=== PATIENT | female | born 1970 | race American Indian/Alaskan Native ===

== ENCOUNTER 2017-04-15 16:23 | Emergency (ER) | payer MEDICAID ==
[~2017-04-15] VITALS: Ht 154.9 cm; Wt 84.3 kg
[2017-04-15] MEDS ORDERED: SODIUM CHLORIDE 0.9% 1,000 ML IV ONE (17:09)
[2017-04-15 17:24] LABS: HEMATOCRIT 48.6 % (34.6-47.8); HEMOGLOBIN 16.6 g/dL (11.7-16.4); WHITE BLOOD COUNT 9.3 x10^3/uL (3.4-10)
[2017-04-15] MEDS ORDERED: ONDANSETRON 2MG/ML, 2ML ONE (17:25)
[2017-04-15] MEDS ORDERED: HYDROmorphone 1 MG/ML, 1ML ONE ×2 (17:25→19:15)
[2017-04-15] MEDS ORDERED: FAMOTIDINE 20 MG/2 ML ONE (17:26)
[2017-04-15] MEDS ORDERED: SODIUM CHLORIDE 0.9% 1,000ML IVBOLUS ONE (17:30)
[2017-04-15] MEDS ORDERED: FAMOTIDINE 20 MG/2 ML IVP ONE (17:30)
[2017-04-15] MEDS ORDERED: ONDANSETRON 2MG/ML, 2ML IVPush ONE (17:30)
[2017-04-15] MEDS ORDERED: SODIUM CHLORIDE FLUSH 10ML SYR IVF ONE (17:30)
[2017-04-15 17:33] LABS: ASPARTATE AMINO TRANSFERASE 29 U/L (15-37); BLOOD UREA NITROGEN 9 mg/dL (7-18)
[2017-04-15] MEDS: HYDROmorphone 1 MG/ML, 1ML IVPush PRN ×2 (17:39→19:10)
[2017-04-15 19:10] VITALS: BP 123/66
== END 2017-04-15 19:13 | disposition home or self-care (01) ==
LOC: ED 18:52
DX: K80.70 Calculus of gallbladder and bile duct without cholecystitis without obstruction (principal); Z90.710 Acquired absence of both cervix and uterus
CPT/HCPCS: 36415; 76700; 80053; 83690; 85025; 96361; 96374; 96375; 96376; 99285; J1170; J2405; J7030; S0028

== ENCOUNTER 2017-04-16 22:05 | Emergency (ER) | payer MEDICAID ==
[~2017-04-16] VITALS: Ht 154.9 cm; Wt 86.9 kg
[2017-04-16 23:00] LABS: HEMATOCRIT 44.5 % (34.6-47.8); HEMOGLOBIN 15.4 g/dL (11.7-16.4); WHITE BLOOD COUNT 8.4 x10^3/uL (3.4-10)
[2017-04-16] MEDS ORDERED: SODIUM CHLORIDE 0.9% 1,000ML IVBOLUS ONE (23:00)
[2017-04-16] MEDS ORDERED: ONDANSETRON 2MG/ML, 2ML IVPush ONE (23:00)
[2017-04-16] MEDS ORDERED: SODIUM CHLORIDE FLUSH 10ML SYR IVF ONE (23:00)
[2017-04-16] MEDS ORDERED: FAMOTIDINE 20 MG/2 ML IVP ONE (23:00)
[2017-04-16] MEDS ORDERED: MORPHINE SULFATE 4 MG/ML, 1ML IVPush PRN (23:00)
[2017-04-16] MEDS ORDERED: MAALOX/HYOSCYAMINE/LIDOCAINE 45 ML BTL PO ONE (23:00)
[2017-04-16] MEDS ORDERED: ONDANSETRON 2MG/ML, 2ML ONE (23:03)
[2017-04-16] MEDS ORDERED: morphine SULFATE 10 MG/ML, 1ML ONE (23:03)
[2017-04-16] MEDS ORDERED: FAMOTIDINE 20 MG/2 ML ONE (23:04)
[2017-04-16] MEDS ORDERED: MAALOX/HYOSCYAMINE/LIDOCAINE 45 ML BTL ONE (23:04)
[2017-04-16 23:10] LABS: BLOOD UREA NITROGEN 16 mg/dL (7-18)
[2017-04-16 23:17] LABS: ASPARTATE AMINO TRANSFERASE 21 U/L (15-37)
[2017-04-16] MEDS ORDERED: HYDROmorphone 1 MG/ML, 1ML IV ONE (23:30)
[2017-04-16] MEDS ORDERED: HYDROmorphone 1 MG/ML, 1ML ONE (23:47)
[2017-04-17 03:59] VITALS: BP 118/77
== END 2017-04-17 04:01 | disposition home or self-care (01) ==
LOC: ED 23:39
DX: K80.20 Calculus of gallbladder without cholecystitis without obstruction (principal); E66.9 Obesity, unspecified
CPT/HCPCS: 36415; 74020; 80053; 81003; 83690; 84703; 85025; 93005; 96361; 96374; 96375; 99285; J1170; J2405; J7030; S0028

== ENCOUNTER 2017-09-19 14:19 | Emergency (ER) | payer MEDICAID ==
[~2017-09-19] VITALS: Ht 154.9 cm; Wt 88.7 kg
[2017-09-19 14:21] VITALS: BP 145/89
[2017-09-19 15:19] LABS: MICROSCOPIC AUTO
[2017-09-19 15:23] LABS: CULTURE INDICATED? YES
[2017-09-19 15:34] LABS: BASOPHILS # (AUTO) 0.04 x10^3/uL (0-0.1); BASOPHILS % (AUTO) 1 % (0-1); EOSINOPHILS # (AUTO) 0.26 x10^3/uL (0-0.4); EOSINOPHILS % (AUTO) 3 % (1-7); LYMPHOCYTES # (AUTO) 2.72 x10^3/uL (1-3.4); LYMPHOCYTES % (AUTO) 33 % (22-44); MD NO; MEAN CORPUSCULAR HEMOGLOBIN 31.6 pg (27.0-34.8); MEAN CORPUSCULAR HGB CONC 34.3 g/dL (32.4-35.8); MEAN PLATELET VOLUME 9.1 fL (7.4-10.4); MONOCYTES # (AUTO) 0.49 x10^3/uL (0.2-0.8); MONOCYTES % (AUTO) 6 % (2-9); NEUTROPHILS # (AUTO) 4.66 x10^3/uL (1.8-6.8); NEUTROPHILS % (AUTO) 57 % (42-75); PLATELET COUNT 284 x10^3/uL (130-400); RED BLOOD COUNT 4.63 x10^6/uL (3.82-5.3); RED CELL DISTRIBUTION WIDTH 12.8 % (9.6-15.2)
[2017-09-19] MEDS ORDERED: LORazepam 1MG TABLET PO ONE (16:30)
[2017-09-19] MEDS ORDERED: CEFTRIAXONE 1,000 MG IM ONE (16:30)
[2017-09-19] MEDS ORDERED: CEFTRIAXONE 1,000 MG ONE (16:50)
[2017-09-19] MEDS ORDERED: LORazepam 1MG TABLET ONE (16:51)
[2017-09-19] MEDS ORDERED: LIDOCAINE-MPF 1%, 2ML ONE (16:51)
== END 2017-09-19 17:21 | disposition home or self-care (01) ==
LOC: ED 17:15
DX: N30.90 Cystitis, unspecified without hematuria (principal); F17.200 Nicotine dependence, unspecified, uncomplicated; Z90.710 Acquired absence of both cervix and uterus
CPT/HCPCS: 36415; 81001; 83690; 84703; 85025; 87077; 87086; 96372; 99284; J0696; 87186

== ENCOUNTER 2017-11-06 01:04 | Emergency (ER) | payer MEDICAID ==
[~2017-11-06] VITALS: Ht 154.9 cm; Wt 86.0 kg
[2017-11-06 01:07] VITALS: BP 147/78
[2017-11-06 02:26] LABS: CLUE CELLS NONE SEEN (NONE SEEN)
[2017-11-06 02:28] LABS: WET PREP WBCS FEW (FEW)
[2017-11-06 02:34] LABS: HCG UR SG 1.022 (1.003-1.030)
[2017-11-06 02:37] LABS: MICROSCOPIC INDICATED
[2017-11-06 02:38] LABS: CULTURE INDICATED? YES
== END 2017-11-06 03:20 | disposition home or self-care (01) ==
LOC: ED 02:12
DX: N30.90 Cystitis, unspecified without hematuria (principal); R39.15 Urgency of urination; E66.9 Obesity, unspecified; Z87.19 Personal history of other diseases of the digestive system; Z90.710 Acquired absence of both cervix and uterus
CPT/HCPCS: 81001; 81025; 87077; 87086; 87186; 87210; 87491; 87591; 87808; 99284

== ENCOUNTER 2017-11-07 12:28 | Emergency (ER) | payer MEDICAID ==
[~2017-11-07] VITALS: Ht 154.9 cm; Wt 88.3 kg
[2017-11-07 12:31] VITALS: BP 141/88
[2017-11-07 14:53] LABS: BASOPHILS # (AUTO) 0.04 x10^3/uL (0-0.1); BASOPHILS % (AUTO) 1 % (0-1); EOSINOPHILS # (AUTO) 0.32 x10^3/uL (0-0.4); EOSINOPHILS % (AUTO) 5 % (1-7); LYMPHOCYTES # (AUTO) 2.63 x10^3/uL (1-3.4); LYMPHOCYTES % (AUTO) 40 % (22-44); MD NO; MEAN CORPUSCULAR HEMOGLOBIN 31.4 pg (27.0-34.8); MEAN CORPUSCULAR HGB CONC 33.9 g/dL (32.4-35.8); MEAN CORPUSCULAR VOLUME 92.6 fL (80-100); MEAN PLATELET VOLUME 9.2 fL (7.4-10.4); MONOCYTES # (AUTO) 0.41 x10^3/uL (0.2-0.8); MONOCYTES % (AUTO) 6 % (2-9); NEUTROPHILS # (AUTO) 3.14 x10^3/uL (1.8-6.8); NEUTROPHILS % (AUTO) 48 % (42-75); PLATELET COUNT 271 x10^3/uL (130-400); RED BLOOD COUNT 4.58 x10^6/uL (3.82-5.3)
[2017-11-07 14:59] LABS: ALBUMIN 3.5 g/dL (3.4-5.0); ANION GAP 10 mmol/L (5-15); CALCIUM 8.8 mg/dL (8.5-10.1); CHLORIDE 108 mmol/L (98-107)
[2017-11-07 15:04] LABS: CREATININE 0.66 mg/dL (0.55-1.02)
== END 2017-11-07 16:42 | disposition home or self-care (01) ==
LOC: ED 16:36
DX: R60.0 Localized edema (principal); F31.9 Bipolar disorder, unspecified; F17.200 Nicotine dependence, unspecified, uncomplicated
CPT/HCPCS: 36415; 71046; 80048; 82040; 83880; 85025; 93005; 93970; 99285